=== PATIENT | male | born 1925 | race Caucasian/White ===

== ENCOUNTER 2016-09-14 13:19 | Inpatient (IN) | payer MEDICARE, OTHER ==
[~2016-09-14] VITALS: Ht 182.9 cm; Wt 93.6 kg
--- NOTE | ~2016-09-14 | HP ---
PATIENT'S NAME: KATHRYN [facility] AGE: 89 Y [address] ROOM: [place] [address] LOCATION: GPCU ADMIT DATE: 09/14/2016 History & Physical DISCHARGE DATE: FAMILY PHYSICIAN: , GLORIA ATTENDING PHYSICIAN: Brandi Brito DATE OF SERVICE: CHIEF COMPLAINT: Chest pain and fever. HISTORY OF PRESENT ILLNESS: The patient is an 89-year-old male, who presented to the emergency room with shortness of breath and difficulty breathing as well as chest pain and cough. He states that it just hit him today he was actually feeling good up until this morning. He states he went up to go get coffee and came back, started feeling a little bit more fatigued and by the afternoon was really feeling rough. He was febrile to 101.5 when he came into the hospital. He denies any right upper quadrant pain or belly pain, mostly just through the chest, and now he is actually developing a rash. He is quite comfortable though at this point. PAST MEDICAL HISTORY: Significant illnesses include being overweight with a BMI of 25. PRIOR SURGERIES: He had appendectomy and tonsillectomy in 1940 and circumcision in 1986. SOCIAL HISTORY: He lives at home with his whom he helps take care of. He is a nonsmoker; does not drink alcohol except on a social basis. He is a graduate of [employer]. He was in World War II, actually served, and was able to go to the tomb of the unknown soldier and lay a wreath on that at celebration for World War II. ALLERGIES: NONE. PRIOR IMMUNIZATIONS: He has been getting yearly flu vaccines from 14 through 16, but I do not see a Pneumovax in our chart nor a Zostavax or shingles vaccine. PHYSICAL EXAMINATION: VITAL SIGNS: Temperature 99.4; pulse 103; respirations 22; blood pressure 108/56; and O2 saturation 97% on 4 L of oxygen, he was initially 84% on room PATIENT'S NAME: KATHRYN [facility] AGE: 89 Y [address] ROOM: [address] [address] LOCATION: GPCU ADMIT DATE: 09/14/2016 History & Physical DISCHARGE DATE: FAMILY PHYSICIAN: PHYSICIAN, UNKNOWN ATTENDING PHYSICIAN: Brandi Brito when he came into the emergency room. His weight is 90.7 kg. GENERAL: The patient is a nontoxic-appearing male, in no acute distress, appears at stated age. HEENT: Head, normocephalic and atraumatic. Ears, TMs are clear and intact bilaterally. Nose patent. Throat clear. His teeth are under poor repair. NECK: Supple without lymphadenopathy. HEART: Regular rate and rhythm without audible murmur. LUNGS: Rales to the left base are readily heard. I do not hear a ton on the right though. His air movements diminished toward the bases. ABDOMEN: Soft, nondistended, nontender. Bowel sounds are positive. There is no hepatosplenomegaly. No guarding or rebound. Specifically, there is no right upper quadrant pain to palpation. no mass is palpable. EXTREMITIES: No clubbing, cyanosis, or edema. SKIN: He does have a little bit of irritated rash on the right side of his neck, but then he also has what appears to be a dermatomal rash on the right below his nipple, so about the T5-T6 dermatome that looks like it is developing into vesicles. A couple of these are scabbed over, however. He is unsure of how long that has been there. NEUROLOGICAL: He is focally intact. LABORATORY DATA: His ABG showed a pH of 7.33, pO2 of 22, pCO2 of 44, bicarb of 23.2, 32% oxygenation which always leans us as a venous source. Lactate is 5.60, which is elevated. D-dimer 3.55. CMS shows sodium 141, potassium 4.1, chloride 106, CO2 of 21, glucose 130, BUN 21, creatinine 1.2, total protein 6.8, albumin 3.7, bilirubin 1.8, alkaline phosphatase 155, AST 949, ALT 499, estimated GFR is 57, CPK is 64, MB is 1.0, troponin is less than 0.040, proBNP is 119. His white cell count is 9400 with hemoglobin 14.1, hematocrit 42.8%, platelet count 133,000. PTT is 23, PT is 10.6, and INR 1.0. His procalcitonin level is 0.91. Influenza A and B are both negative. Chest x-ray does show bilateral infiltrates, with bibasilar atelectasis or consolidation. His urine, 5 to 10 whites, negative for reds, 10 to 20 epi's, and a few bacteria. ASSESSMENT AND PLAN: An 89-year-old white male with the following problem list: 1. Bilateral pneumonia: We did place on pneumonia pathway with IV Rocephin and Zithromax that was started in the ER. Continue to watch his procalcitonin level. He is actually fairly stable. When he initially got to the floor, he had some hypotension, but that responded to a normal saline fluid bolus. His pressure has been good since that time. 2. Rash on right anterior chest in a dermatomal pattern concerning for shingles: We will go and cover him with some Valtrex, put him on isolation for now until we can further define that. 3. Elevated liver function studies: Wonder about a stone causing this, nothing on the CT that was definitive. He may end up needing an MRCP. He PATIENT'S NAME: JESICA PERALTA [facility] AGE: 89 Y [address] ROOM: [place] [address] LOCATION: GPCU ADMIT DATE: 09/14/2016 History & Physical DISCHARGE DATE: FAMILY PHYSICIAN: PHYSICIAN, UNKNOWN ATTENDING PHYSICIAN: Brandi Brito did not complete triad with right upper quadrant pain, but certainly has a fever which still could be from pneumonia and elevated liver function studies. Therefore, I will add some Flagyl onto his regimen. Initially, I was going to put him on Zosyn, but he has already received the Rocephin and azithromycin, so we just continued that and added Flagyl instead. GI is going to see him, but we will trend out his enzymes in the morning. We will go ahead and add amylase and lipase to him as well. 4. Acute hypoxic respiratory failure: He is currently on 4 L of oxygen, but is saturating in the 97% to 98% range. We will continue with oxygen to help support his hypoxia. 5. Elevated blood sugar: We may need to keep a close eye on that. His Accu- Chek was 129 on the floor at 13:45. No history of diabetes or prediabetes. 6. Overweight status with BMI of 25: Continue to encourage a slight amount of weight loss. 7. Code status: I did review the code status with both him and his daughter, and they are in agreement that he used to be a full code. Dr. Amaral will assume care in the morning. The patient and his daughter voiced understanding of this plan of care. BRANDI BRITO MD TAB/modl /[id number] D: [id number] T: 832 HISTORY & PHYSICAL
--- NOTE | ~2016-09-14 | CON ---
PATIENT'S NAME: KATHRYN [facility] AGE: 89 Y [address] ROOM: [place] [address] LOCATION: [facility] ADMIT DATE: 09/14/2016 Consultation DISCHARGE DATE: FAMILY PHYSICIAN: Elie Amaral MD ATTENDING PHYSICIAN: Vijay Koo REFERRING PHYSICIAN: Tim Armando MD REASON FOR CONSULTATION: This is an 89-year-old male who is seen in consultation for evaluation of abnormal liver function test. HISTORY OF PRESENTING ILLNESS: An 89-year-old male who is admitted through the emergency room with difficulty of breathing, chest pain, and cough. He has been feeling quite well prior to this sudden episode of illness with cough, fever, and chest pain. He had coffee, came back, and started feeling little fatigued in the afternoon. He had cough with a fever of 101.5. He has also associated chills. Denies any epigastric and right upper quadrant abdominal pain mostly in his chest. PAST MEDICAL HISTORY: Significant for being overweight. PRIOR SURGERIES: Include appendectomy and tonsillectomy in 1940. Circumcision in 1986. SOCIAL HISTORY: He lives at home with his . His daughter is accompanying him today when I interviewed him. He is a nonsmoker, nondrinker, and only drinks on social occasions. He has a Second World War . ALLERGIES: NONE. REVIEW OF SYSTEMS: A 10-point review of system is negative other than what is mentioned above. PHYSICAL EXAMINATION: GENERAL: Reveals an elderly gentleman, who is not in acute discomfort. VITAL SIGNS: Show blood pressure is 160/92, weight is 93 kg, pulse 82 per minute, respirations are 12 per minute, temperature 97.7. HEENT: Head: Normocephalic, atraumatic. NECK: Supple. No lymphadenopathy. CHEST: Clear to palpation, percussion, auscultation. CARDIAC: Reveals both heart sounds are normal. No S3, no murmur, although his both lung bases have decreased breath sounds. ABDOMEN: Soft, is nontender. There is no hepatosplenomegaly. No ascites. PATIENT'S NAME: KATHRYN [facility] AGE: 89 Y [address] ROOM: [place] [address] LOCATION: GPCU ADMIT DATE: 09/14/2016 Consultation DISCHARGE DATE: FAMILY PHYSICIAN: Elie Amaral MD ATTENDING PHYSICIAN: Vijay Koo Bowel sounds are active. NEUROLOGICAL: Cranial nerves 2 through 12 are intact. Motor and sensory system intact. There are no focalizing signs. MUSCULOSKELETAL: He moves all extremities equally bilaterally. There are no lateralizing signs. GENITOURINARY: Bladder is not full. There are no hypogastric tenderness. LABORATORY DATA: Shows his pH was 7.3 on admission, pO2 was 22, pCO2 was 23. Base excess was - 2.8, lactate was 5.6. Electrolytes are normal except chlorides were 111 and bicarbonate was 21. Glucose is 142. His liver function tests were abnormal. Alkaline phosphatase was 173, AST 735, ALT 707, lipase 626. ProBNP was 119. CK-MB was 1. Serology was negative for influenza A and B. Urinalysis showed 500 leukocytes in the urine. Rbc's were negative. His CT scan showed pulmonary angiography with negative pulmonary embolism. CT abdomen showed intrahepatic bile duct dilatation. Common hepatic duct is slightly prominent at about 10 mm of caliber. The common bile duct within the pancreatic head was nondilated. There was no pancreatitis, there was no visible stones, no gallbladder or inflammatory changes. Etiology of dilatation is uncertain. Tiny cysts were seen in the liver along with splenic cyst. The liver was noncirrhotic. Distal colonic diverticulosis were seen in the colon. Subsequently, he had an MRCP, which showed intrahepatic ducts were dilated. There was a questionable stricture of the intrahepatic ducts above the confluence. The common bile duct was normal. ASSESSMENT: Mr. Reeves has bilateral pneumonia with septicemia. Blood culture is positive for Escherichia coli. There is leukocytosis 16,000 white count, which is being treated. However, his intrahepatic ductal dilatation needs to be further evaluated. I have discussed in detail with Dr. Amaral for a followup evaluation of his dilated intrahepatic ducts, particularly in the left lobe with some stricture at the base of the left hepatic duct. This should be further pursued at [facility] [place]. I have suggested the name of Dr. Milligan and gave information to the patient as well who is in agreement of following up after his pneumonia is under control and he is feeling better and stronger. We appreciate sharing care of this patient. MD SANDIP HERNANDEZ/britney PATIENT'S NAME: JESICA REEVES [facility] AGE: 89 Y [address] ROOM: [place] [address] [facility] ADMIT DATE: 09/14/2016 Consultation DISCHARGE DATE: FAMILY PHYSICIAN: Elie Amaral MD ATTENDING PHYSICIAN: Vijay Koo /[id number] CC: Elie Amaral MD d: 09/16/16 2347 t: 09/17/16 1141, CONSULTATION REPORT
--- NOTE | ~2016-09-14 | DS ---
PATIENT'S NAME: JESICA PERALTA [facility] AGE: 89 Y [address] ROOM: [place] [address] LOCATION: GPCU ADMIT DATE: 09/14/2016 Discharge Summary DISCHARGE DATE: 09/17/2016 FAMILY PHYSICIAN: Elie Amaral MD ATTENDING PHYSICIAN: Vijay Koo DISCHARGE DIAGNOSES: 1. Bilateral lower lobe pneumonia with sepsis that grew out Escherichia coli. 2. Elevated glucose. 3. Elevated liver enzymes. 4. Rash of chest. CONSULTS DURING ADMISSION: Gastroenterology. PROCEDURES DURING ADMISSION: MRCP. HOSPITAL COURSE: The patient is an 89-year-old male, who presents to the emergency department with shortness of breath, fatigue, and fevers and was found to have bilateral lobe pneumonia. His blood cultures grew out E. coli, which was sensitive to the Rocephin that he was on. The patient was also noted to have elevated liver enzymes and was continued on azithromycin and Flagyl and Gastroenterology was consulted. Gastroenterology performed MRCP on September 16, which showed no stones in the ducts, but with some stricture. The patient was on room air for greater than 24 hours and tolerating p.o. well and had a bowel movement and was able to ambulate without becoming short of breath upon discharge. The patient also was noted to have a rash on his chest that was first thought to be shingles, but after more observation appeared to be just an abrasion. DISCHARGE CONDITION: Stable. DISPOSITION: Home. DISCHARGE MEDICATIONS: Please see list. DISCHARGE INSTRUCTIONS: We will continue the patient on Levaquin, which E. coli is sensitive to, 500 mg daily for 10 days. He is to use an incentive spirometry at home. The patient declined Home Health at this time. The patient is to follow up with Dr. Amaral in approximately 1 week with [facility]. Gastroenterology as directed. PATIENT'S NAME: KATHRYN [facility] AGE: 89 Y [address] ROOM: [place] [address] LOCATION: GPCU ADMIT DATE: 09/14/2016 Discharge Summary DISCHARGE DATE: 09/17/2016 FAMILY PHYSICIAN: Elie Amaral MD ATTENDING PHYSICIAN: Vijay Koo MD RLG/modl /[id number] d: 09/17/16 2308 t: 09/25/16 0841, DISCHARGE SUMMARY
--- NOTE | ~2016-09-14 | ER ---
PATIENT'S NAME: KATHRYN [facility] AGE: 89 Y [address] ROOM: [place] [address] LOCATION: GPCU ADMIT DATE: 09/14/2016 ER/Outpatient Report DISCHARGE DATE: FAMILY PHYSICIAN: PHYSICIAN, UNKNOWN ATTENDING PHYSICIAN: Vijay Koo Time of Arrival: 1319 hours. Time of Evaluation: 1319 hours. CHIEF COMPLAINT: Difficulty breathing. HISTORY OF PRESENT ILLNESS: The patient is an 89-year-old male, who presents to the emergency department today with a chief complaint of difficulties breathing. He reports this started 2 days prior to arrival. It has progressively worsened. He reports he is having some shortness of breath. He also reports some left-sided chest pain. He reports some nausea. No vomiting. No diaphoresis. No weakness. Pain is currently 0/10 in severity. He is having troubles breathing. Denies any history of PE or DVT. No ripping or tearing sensation. No radiation to the back and no radiation. PAST MEDICAL HISTORY: Nephrolithiasis. PAST SURGICAL HISTORY: Appendectomy, TURP, cystoscopy, and ESWL in 2009. SOCIAL HISTORY: The patient denies any tobacco, alcohol, or illicit drug use. ALLERGIES: NO KNOWN DRUG ALLERGIES. MEDICATIONS: Please see list. PRIMARY CARE DOCTOR: Elie Amaral M.D. REVIEW OF SYSTEMS: All systems are reviewed by myself and negative with the exception of those discussed in HPI and past medical history. PHYSICAL EXAMINATION: PATIENT'S NAME: KATHRYN [facility] AGE: 89 Y [address] ROOM: [place] [address] LOCATION: GPCU ADMIT DATE: 09/14/2016 ER/Outpatient Report DISCHARGE DATE: FAMILY PHYSICIAN: PHYSICIAN, UNKNOWN ATTENDING PHYSICIAN: Vijay Koo VITAL SIGNS: Weight 90.7 kg, blood pressure 218/85, pulse 130, respiratory rate 24, temperature 101.5, and oxygen saturation 84% on room air. GENERAL: The patient is an 89-year-old male, appears as stated age, in no acute respiratory distress. HEENT: Head normocephalic and atraumatic. Pupils are equal, round, and reactive to light. NECK: Supple. There is no nuchal rigidity. CARDIOVASCULAR: Tachycardic. No murmurs, rubs, or gallops. LUNGS: With crackles at bilateral bases. Tachypneic. ABDOMEN: Soft, nontender, and nondistended. No rebound, rigidity, or guarding. Positive bowel sounds. MUSCULOSKELETAL: The patient moves all 4 extremities. SKIN: Warm and dry. LABORATORY DATA AND X-RAYS: Labs and x-rays are obtained. EKG was obtained, shows sinus tachycardia with a rate of 128, left axis deviation, QTc is normal. No ST elevation, ST depression, or nonspecific abnormalities. Venous blood gas; 7.33/44/22/23.2/negative 2.8. Lactate is 5.6. CBC is normal except for platelet of 133, 12% bands. Coags are normal. ProBNP is normal. D-dimer is 3.55. CMP is normal except for CO2 of 21. T-bilirubin is 1.8. Alkaline phosphatase 155. AST is 949. ALT is 499. CK is normal. Cardiac enzymes normal. Influenza A and B are negative. Procalcitonin 0.91. Urinalysis shows 500 leukocyte esterase, 5 to 10 wbc's, 10 to 20 epithelials, few bacteria. CT scan of the chest, abdomen, and pelvis were obtained. I have discussed results with the radiologist. There is no evidence of PE. There is evidence of pneumonia in bilateral bases. There is intrahepatic ductal dilatation and common hepatic ductal dilatation. Liver appears noncirrhotic. IMPRESSION: 1. Community-acquired pneumonia. 2. Acute respiratory failure, room air hypoxia, requiring 4 L nasal cannula. 3. Intrahepatic ductal dilatation with elevated liver enzymes and bilirubin, cholangitis versus lesion versus biliary stone. 4. Critical care time of 32 minutes. 5. Initial visit. 6. Sepsis. EMERGENCY DEPARTMENT COURSE: The patient was brought back to the examination room. Seen and evaluated by myself. An IV was established. Laboratory analysis and imaging are obtained as described above. The patient was given a DuoNeb, breathing treatment x2, and initiated on a liter of normal saline. I even started on 2 grams of Rocephin and 500 mg of azithromycin. He was given 1 gram of Tylenol. He was given another liter of normal saline. I did discuss the case with Dr. Koo. PATIENT'S NAME: JESICA PERALTA [facility] AGE: 89 Y [address] ROOM: [id number] [place] [address] [facility] ADMIT DATE: 09/14/2016 ER/Outpatient Report DISCHARGE DATE: FAMILY PHYSICIAN: , GLORIA ATTENDING PHYSICIAN: Vijay Koo He also recommended adding on Flagyl. This is started as an IV here in the emergency department. He does agree to accept the patient for further evaluation, treatment, and management. I did contact Dr. Cagle with Gastroenterology, he will see and evaluate the patient as well in the hospital. I have discussed results with the patient. His questions were answered. The patient did require cumulative critical care time of 32 minutes. This did include discussion with the patient, talking with multiple consultants, ordering tests, reviewing tests, as well as close monitoring with the patient with sepsis and elevated liver enzymes. DISPOSITION: The patient is admitted under the care of Dr. Koo in stable condition. DO HAMLET BLUM/modl /[id number] d: 09/15/162 t: 09/21/16 0631, OUTPATIENT REPORT
[2016-09-14 13:55] LABS: BICARBONATE 23.2 mmol/L (18.0-23.0); PCO2 44 mmHg (35-45)
[2016-09-14 13:56] LABS: PO2 22 mmHg (80-90)
[2016-09-14 13:57] LABS: HEMATOCRIT 42.8 % (33.0-50.0); HEMOGLOBIN 14.1 g/dL (11.0-16.0); MCH 31.5 pg (27.0-34.0); MCHC 32.9 gm/dL (32.0-36.5); MCV 95.7 fl (83.0-98.0); MPV 10.4 fl (9.4-12.4); PLATELET COUNT 133 K/uL (150-450); RBC 4.47 M/uL (3.50-5.50); RDW-CV 12.5 % (11.9-14.6); WBC 9.4 K/uL (4.0-11.0)
[2016-09-14 14:04] LABS: PROTIME 10.6 SECONDS (9.6-11.1); PTT 23 SECONDS (25-32)
[2016-09-14 14:20] LABS: ALBUMIN 3.7 gm/dL (3.5-5.0); ALK PHOS 155 IU/L (33-138); ANION GAP 18.1 (10.0-19.0); BLOOD UREA NITROGEN 21 mg/dL (6-24); CALCIUM 8.5 mg/dL (8.5-10.5); CHLORIDE 106 mMol/L (96-110); CO2 21 mMol/L (22-32); CPK 64 IU/L (35-332); CREATININE 1.2 mg/dL (0.6-1.3); ESTIMATED GFR (MDRD EQUATION) 57; POTASSIUM 4.1 mMol/L (3.7-5.1); SODIUM 141 mMol/L (135-145); TOTAL BILIRUBIN 1.8 mg/dL (0.0-1.5); TOTAL PROTEIN 6.8 g/dL (6.0-8.4)
[2016-09-14 14:21] LABS: ALT 499 IU/L (12-78); AST 949 IU/L (10-40)
[2016-09-14 14:29] LABS: ABSOLUTE NEUTROPHIL CT (ANC) 8.7 K/uL (1.4-9.0); BANDED NEUTROPHIL # 1.1 K/uL (0.0-0.1); BANDED NEUTROPHILS % 12 %; LYMPHOCYTE # 0.6 K/uL (0.8-4.0); LYMPHOCYTE % 6 %; MONOCYTE # 0.1 K/uL (0.0-1.0); SEGMENTED NEUTROPHIL # 7.6 K/uL (1.4-9.0); SEGMENTED NEUTROPHIL % 81 %
[2016-09-14 14:39] LABS: BILIRUBIN URINE NEGATIVE (NEGATIVE); BLOOD URINE 10 /UL (NEGATIVE); COLOR URINE YELLOW (YELLOW); GLUCOSE URINE NEGATIVE (NEGATIVE); KETONE URINE NEGATIVE (NEGATIVE); LEUKOCYTES URINE 500 /UL (NEGATIVE); NITRITE URINE NEGATIVE (NEGATIVE); PH URINE 6.5 (4.0-8.0); PROTEIN URINE NEGATIVE (NEGATIVE); TURBIDITY URINE CLEAR (CLEAR); UROBILINOGEN URINE 4 mg/dL (NORMAL)
[2016-09-14 15:04] LABS: RBC URINE NEGATIVE #/HPF (NEGATIVE)
[2016-09-14 15:05] LABS: BACTERIA URINE FEW (NEGATIVE); MUCUS URINE 1+ (NEGATIVE)
[2016-09-14] MEDS ORDERED: PRESERVISION A1 EAC1 PO ×2 (18:54)
[2016-09-15 04:59] LABS: HEMOGLOBIN 12.5 g/dL (11.0-16.0); MCH 32.2 pg (27.0-34.0); MCHC 33.8 gm/dL (32.0-36.5); MCV 95.4 fl (83.0-98.0); MPV 10.8 fl (9.4-12.4); PLATELET COUNT 136 K/uL (150-450); RBC 3.88 M/uL (3.50-5.50); RDW-CV 13.3 % (11.9-14.6)
[2016-09-15 05:01] LABS: WBC 16.1 K/uL (4.0-11.0)
[2016-09-15 05:21] LABS: ANION GAP 15.5 (10.0-19.0); CALCIUM 8.3 mg/dL (8.5-10.5); CREATININE 1.2 mg/dL (0.6-1.3); POTASSIUM 4.5 mMol/L (3.7-5.1); TOTAL PROTEIN 6.2 g/dL (6.0-8.4)
[2016-09-15 05:25] LABS: TOTAL BILIRUBIN 3.9 mg/dL (0.0-1.5)
[2016-09-15 05:38] LABS: ABSOLUTE NEUTROPHIL CT (ANC) 15.1 K/uL (1.4-9.0); BANDED NEUTROPHIL # 4.7 K/uL (0.0-0.1); BANDED NEUTROPHILS % 29 %; LYMPHOCYTE # 0.8 K/uL (0.8-4.0); LYMPHOCYTE % 5 %; SEGMENTED NEUTROPHIL # 10.5 K/uL (1.4-9.0); SEGMENTED NEUTROPHIL % 65 %
[2016-09-17] MEDS ORDERED: LEVAQUIN500 MG PO (11:35)
== END 2016-09-17 12:20 | disposition disaster alternative care site (69) | DRG 871 ==
LOC: GMED 13:19 → GPCU 16:27 → GMSU 16:27 → GPCU 16:36
PROVIDERS: Emergency Medicine; ADMIT Family Medicine
DX: A41.51 Sepsis due to Escherichia coli [E. coli] (principal); J18.9 Pneumonia, unspecified organism; J96.01 Acute respiratory failure with hypoxia; E66.3 Overweight; Z87.442 Personal history of urinary calculi; B02.9 Zoster without complications; Z68.25 Body mass index [BMI] 25.0-25.9, adult; K83.8 Other specified diseases of biliary tract
CPT/HCPCS: J0456; J0696; J1650; J7030; J7040; J7050